=== PATIENT | female | born 1980 | race African-American/Black ===

== ENCOUNTER 2016-07-20 21:09 | Emergency (ER) | payer SELFPAY ==
[~2016-07-20] VITALS: Ht 181.6 cm; Wt 130.4 kg
[2016-07-20 21:09] VITALS: Ht 181.6 cm; Wt 130.4 kg
[~2016-07-20 21:09] MED LIST: IBUP-1547 PO
--- OUTSIDE RECORDS SUMMARY | 2016-07-20 21:16 | XMS REPORT | Continuity of Care Document ---
Author Author [facility] Organization [facility] Address Unknown Phone Unavailable Support Name Relationship Address Phone QUINTEN NYE DO Caregiver [facility] [address] [place] [address] PHYLLIS VARGAS Next Of Kin [address] [place] [address] Insurance Providers Payer Name Policy Number Subscriber Name Relationship Self Pay Erica Chin 17 Self Problems Medical Problems Problem Onset Date Status Left shoulder pain Unknown Active Medications Medication Dose Route Sig Days/Qty Instructions Order Date Discontinued Date Status [None] 01/08/08 Active Ibuprofen 1 Tab PO Every 8 Hours PRN PAIN 30 Qty 06/14/14 Active Social History Social History Problem Response Recorded Date/Time Hx Alcohol Use Y EVERY OTHER MONTH 06/14/2014 9:27pm Query Response Start Date Stop Date Smoking Status Current every day smoker Hospital Discharge Instructions No hospital discharge instructions. Plan of Care No plan of care. Functional Status Query Response Date Recorded Physical Hygiene Self June 14, 2014 9:27pm Disabilities None June 14, 2014 9:27pm Devices Used None June 14, 2014 9:27pm Dressing Self June 14, 2014 9:27pm Ambulation Self June 14, 2014 9:27pm Diet Self June 14, 2014 9:27pm Mental Status Alert Oriented June 14, 2014 9:27pm Disabilities None June 14, 2014 9:27pm Devices Used None June 14, 2014 9:27pm Physical Hygiene Self June 14, 2014 9:27pm Dressing Self June 14, 2014 9:27pm Ambulation Self June 14, 2014 9:27pm Diet Self June 14, 2014 9:27pm Allergies, Adverse Reactions, Alerts Allergen Type Severity Reaction Status Last Updated No Known Allergies Active 06/14/14 Immunizations Name Given Type Hx Tetanus, Diptheria, Pertussis SKIN INTACT Historical Hx Tetanus, Diptheria, Pertussis SKIN INTACT Historical Vital Signs Acute Vital Signs Vital Response Date/Time Temperature (Fahrenheit) 96.6 deg F (96.8 - 99.1) Temperature (Calculated Celsius) 35.60467 degrees C (36.0 - 37.3) Pulse Rate (adult) 89 bpm (60 - 100) Respiratory Rate 20 breaths/min (10 - 20) O2 Sat by Pulse Oximetry 100 % (90 - 100) Blood Pressure 149/98 mm Hg Height 5 ft 11 in Weight 281 lb Body Mass Index 39.0 kg/m^2 Results Test Source Date Result Interp. Ref. Range Comments Anion Gap August 27, 2007 2:34pm 8.6 MEQ/L N 5-15 BUN/Creatinine Ratio August 27, 2007 2:34pm 10 RATIO N 6-26 Basophils # (Auto) August 27, 2007 2:34pm 0.0 T/MM3 N 0-0.2 Basophils (%) (Auto) August 27, 2007 2:34pm 0.4 % N 0-2 Blood Urea Nitrogen August 27, 2007 2:34pm 7 MG/DL N 7-17 Calcium Level August 27, 2007 2:34pm 9.0 MG/DL N 8.4-10.2 Calculated Osmolality August 27, 2007 2:34pm 273 MOSM/KG N 273-286 Carbon Dioxide Level August 27, 2007 2:34pm 24 MEQ/L N 22-30 Chloride Level August 27, 2007 2:34pm 110 MEQ/L H 98-107 Creatinine August 27, 2007 2:34pm 0.7 MG/DL N 0.7-1.2 Eosinophils # (Auto) August 27, 2007 2:34pm 0.2 T/MM3 N 0-0.5 Eosinophils (%) (Auto) August 27, 2007 2:34pm 2.8 % N 0-4 Glucose Level August 27, 2007 2:34pm 85 MG/DL N 74-106 Hematocrit August 27, 2007 2:34pm 36.0 % N 36-46 Hemoglobin August 27, 2007 2:34pm 12.2 GM/DL N 12-16 Lymphocytes # (Auto) August 27, 2007 2:34pm 5.1 T/MM3 H 1-4.8 Lymphocytes (%) (Auto) August 27, 2007 2:34pm 61.8 % H 23-45 Mean Corpuscular Hemoglobin August 27, 2007 2:34pm 29.9 UUG N 26-34 Mean Corpuscular Hemoglobin Concent August 27, 2007 2:34pm 33.9 GM/DL N 31 -37 Mean Corpuscular Volume August 27, 2007 2:34pm 88.2 UM3 N 80-100 Mean Platelet Volume August 27, 2007 2:34pm 9.7 UM3 N 7.4-10.4 Monocytes # (Auto) August 27, 2007 2:34pm 0.5 T/MM3 N 0-0.8 Monocytes (%) (Auto) August 27, 2007 2:34pm 5.6 % N 0-9.0 Neutrophils # (Auto) August 27, 2007 2:34pm 2.4 T/MM3 N 1.8-7.7 Neutrophils (%) (Auto) August 27, 2007 2:34pm 29.4 % L 33-66 Platelet Count August 27, 2007 2:34pm 325 T/MM3 N 130-400 Potassium Level August 27, 2007 2:34pm 3.7 MEQ/L N 3.6-5 RDW Standard Deviation August 27, 2007 2:34pm 41.7 FL N 36.9-50.2 Red Blood Count August 27, 2007 2:34pm 4.08 M/MM3 N 4.00-5.20 Sodium Level August 27, 2007 2:34pm 143 MEQ/L N 134-144 Thyroid Stimulating Hormone (TSH) August 27, 2007 2:34pm 0.91 MIU/ML N 0.47-4.68 Urine Bacteria August 27, 2007 2:30pm Trace - Has specimen been collected/obtained? YWhat is the Source? [facility] Urine Bilirubin August 27, 2007 2:30pm Negative - Has specimen been collected/obtained? YWhat is the Source? [facility] Urine Blood August 27, 2007 2:30pm Trace - Has specimen been collected/ obtained? YWhat is the Source? [facility] Urine Collection Type August 27, 2007 2:30pm Straight cath - Has specimen been collected/obtained? YWhat is the Source? [facility] Urine Color August 27, 2007 2:30pm Yellow - Has specimen been collected /obtained? YWhat is the Source? [facility] Urine Glucose (UA) August 27, 2007 2:30pm Negative - Has specimen been collected/obtained? YWhat is the Source? [facility] Urine Ketones August 27, 2007 2:30pm Negative - Has specimen been collected/obtained? YWhat is the Source? [facility] Urine Leukocyte Esterase August 27, 2007 2:30pm Negative - Has specimen been collected/obtained? YWhat is the Source? [facility] Urine Nitrite August 27, 2007 2:30pm Negative - Has specimen been collected/obtained? YWhat is the Source? [facility] Urine Test August 27, 2007 2:30pm Negative - Has specimen been collected/obtained? YWhat is the Source? [facility] Urine Protein August 27, 2007 2:30pm Negative - Has specimen been collected/obtained? YWhat is the Source? [facility] Urine RBC August 27, 2007 2:30pm 1-3 /HPF - Has specimen been collected /obtained? YWhat is the Source? [facility] Urine Specific [place] August 27, 2007 2:30pm 1.010 - Has specimen been collected/obtained? YWhat is the Source? [facility] Urine Squamous Epithelial Cells August 27, 2007 2:30pm Few - Has specimen been collected/obtained? YWhat is the Source? [facility] Urine Turbidity August 27, 2007 2:30pm Clear - Has specimen been collected/obtained? YWhat is the Source? [facility] Urine Urobilinogen August 27, 2007 2:30pm Normal EU/DL - Has specimen been collected/obtained? YWhat is the Source? [facility] Urine WBC August 27, 2007 2:30pm 0-1 /HPF - Has specimen been collected /obtained? YWhat is the Source? [facility] Urine pH August 27, 2007 2:30pm 6.0 - Has specimen been collected/ obtained? YWhat is the Source? [facility] White Blood Count August 27, 2007 2:34pm 8.2 T/MM3 N 4.5-11.0 Procedures No known history of procedures. Encounters Encounter Location Date/Time Departed Emergency Room [facility] 06/14/14 8:54pm Recent Diagnosis
--- NOTE | 2016-07-20 21:37 | ERPDOC ---
Departure Disposition Decision Date: July 20, 2016 Disposition Decision Time: 22:34 Disposition: 01 DISCHARGED HOME, SELF-CARE Impression Impression Impression: Primary Impression: Dyspnea Dyspnea type: shortness of breath Qualified Codes: R06.02 - Shortness of breath Severity: Moderate Condition: Improved Seen By: Physician only Patient Instructions: Dyspnea (ED) Problems/Meds/Labs Reviewed?: Yes Medications reviewed and manag: Yes Additional Instructions: [facility] Follow up care ordered?: Yes Mental Status: Alert, Oriented HPI - General Medical General Stated Complaint: DIFFICULTY BREATHING Time Seen by Provider: 21:37 Source: patient Exam Limitations: no limitations HPI - General Medical Initial Comments Patient is a 36-year-old female presents emergent for evaluation of shortness of breath tingling in bilateral arms. Patient states she's been having symptoms off and on for several days, [facility] and started on propanolol. Patient redeveloped the symptoms after eating dinner tonight approximately 5:30 this lasted for 1 hour. EMS was called patient was found be hypertensive, patient was brought to the ER for evaluation. On arrival patient's symptoms have essentially resolved 1st blood pressure 151/67 Occurred At: home Onset: Rapid Duration: 1 hr Pain Scale: Now: 0/10 Allergies: Coded Allergies: No Known Allergies (Unverified , 06/14/14) Past History Past Medical History Pt denies signifigant PMH Hx Echocardiogram: No Psychological: drug abuse Surgical History Denies Surgeries Social History Smoking Status: Current every day smoker Substance Use Type: does not use Alcohol Intake: none Review of Systems Constitutional Constitutional: DENIES: appetite decrease, chills, dizziness, fever, weakness ENMT Sinuses: DENIES: congestion Cardiovascular Cardiac: dyspnea on exertion, DENIES: chest pain Pulmonary Respiratory: dyspnea, DENIES: cough, sputum GI Upper Abdomen: DENIES: nausea, pain, vomiting Musculoskeletal General: DENIES: cramps, pain, weakness Integumentary Skin: DENIES: color change, itching, rash Endocrine Endocrine: DENIES: heat/cold intolerance Hematologic/Lymphatic Hematologic/Lymphatic: DENIES: anemia Physical Exam General General Nourishment: well nourished, well developed General Body Habitus: well groomed Vitals and Pain First Documented Vital Signs Date Time Temp Pulse Resp B/P Pulse Ox O2 Delivery O2 Flow Rate FiO2 5/18/17 21:09 98.1 86 20 151/67 97 Room Air Weight: Kilograms: Height (feet): 5 Height (inches): 11.00 Triage Pain Scale: RN VS reviewed by Provider: Yes Eyes (brief) Eyes Brief: found: EOMI, PERRL ENMT (brief) ENMT Brief: FOUND: mucosa moist, normal dentition, NOT FOUND: nasal erythema, pharnyx erythema, tonsillar deviation Neck (brief) Neck: NOT FOUND: adenopathy, spasm, tenderness Respiratory (brief) Respiratory: FOUND: clear all [place], equal bilaterally, NOT FOUND: rales, wheezes Cardiovascular (brief) Cardiac: FOUND: regular rate, regular rhythm Capillary Refill: <2 sec Abdomen (brief) Abdominal Brief: FOUND: bowel normo active x4, soft, NOT FOUND: distended, tender Lymphatic (brief) Lymphatic Brief: NOT FOUND: adenopathy Musculoskeletal (brief) Musculoskeletal Brief: NOT FOUND: spasm, tenderness Integumentary (brief) Integumentary Brief: FOUND: dry, pink, warm, NOT FOUND: rash Neurologic (brief) Neurological Brief: FOUND: CN w/o gross def to obs, motor-no gross deficits, sensory-no gross deficits Psychiatric (brief) Psychiatric Brief: FOUND: alert, oriented Differential Diagnoses Considering: Hypo/Hyperglycemia, Hypo/Hyperkalemia, Hypo/Hypernatremia, Medication Effect, Pneumonia, Psychosis, Other (anxiety, atypical chest pain, acute IA, angina) Progress Results/Orders Orders Procedure Category Date Status Time Chest, Pa & Lateral RAD 07/20/16 Taken 21:43 EKG EKG 07/20/16 Taken 21:43 Cbc W/Auto LAB 07/20/16 Complete Diff-Reflex Manual 21:43 Bmp - Basic Metabolic LAB 07/20/16 Complete Panel 21:43 Troponin I W LAB 07/20/16 Complete Hemolysis Index 21:43 Lab Results Laboratory Tests Test 07/20/16 22:04 White Blood Count 8.5T/MM3 Red Blood Count 3.88M/MM3 Hemoglobin 11.7GM/DL Hematocrit 35.7% Mean Corpuscular Volume 92.0UM3 Mean Corpuscular Hemoglobin 30.2UUG Mean Corpuscular Hemoglobin Concent 32.8GM/DL RDW Standard Deviation 46.0FL Platelet Count 365T/MM3 Mean Platelet Volume 9.2UM3 Immature Granulocyte % (Auto) 0.1% Neutrophils (%) (Auto) 38.1% Lymphocytes (%) (Auto) 49.1% Monocytes (%) (Auto) 6.1% Eosinophils (%) (Auto) 5.2% Basophils (%) (Auto) 1.4% Absolute Immature Granulocyte (auto 0.01T/MM3 Absolute Neutrophils (auto) 3.2T/MM3 Absolute Lymphocytes (auto) 4.2T/MM3 Absolute Monocytes (auto) 0.5T/MM3 Absolute Eosinophils (auto) 0.4T/MM3 Absolute Basophils (auto) 0.1T/MM3 Turbidity < 20 Sodium Level 145MEQ/L Potassium Level 3.9MEQ/L Chloride Level 111MEQ/L Carbon Dioxide Level 25MEQ/L Anion Gap 9MEQ/L Blood Urea Nitrogen 13.0MG/DL Creatinine 0.8MG/DL Glomerular Filtration Rate Calc 81 BUN/Creatinine Ratio 16RATIO Glucose Level 95MG/DL Calculated Osmolality 279MOSM/KG Calcium Level 9.1MG/DL Icterus Index < 2 Troponin I < 0.012ng/ml Chemistry Specimen Hemolysis < 15 Progress Progress Patient's symptoms had resolved upon arrival, laboratories are noncontributory. We'll discharge patient back [facility], [facility] continue medications prescribed by [facility] EKG EKG : Rate: 60-100 Rhythm: sinus [place]: normal QRS: normal Intervals: normal ST/T: non-specific changes Interpreted by: signing physician Xray Xray : Xray: CXR PA/Lat Interpretation: Normal, Interpreted by Me (no acute cardiopulmonary findings ) LITZY JOY MD July 20, 2016 21:37
--- OUTSIDE RECORDS SUMMARY | 2016-07-20 21:45 | XMS REPORT | Continuity of Care Document ---
Author Author [facility] Organization [facility] Address Unknown Phone Unavailable Support Name Relationship Address Phone QUINTEN NYE DO Caregiver [facility] [address] [place] [address] PHYLLIS VARGAS Next Of Kin [address] [place] [address] Insurance Providers Payer Name Policy Number Subscriber [...] F (96.8 - 99.1) Temperature (Calculated Celsius) [phone] degrees C (36.0 - 37.3) Pulse Rate [...] is the Source? [facility] Urine Specific [place] August 27, 2007 2:30pm 1.010 - Has [...] Encounter Location Date/Time Departed Emergency Room [facility] 06/14/14 8:54pm Recent Diagnosis
[2016-07-20 22:08] LABS: BASOPHILS # (AUTO) 0.1 T/MM3 (0-0.2); BASOPHILS % (AUTO) 1.4 % (0-2); EOSINOPHILS # (AUTO) 0.4 T/MM3 (0-0.5); EOSINOPHILS % (AUTO) 5.2 % (0-4); HCT - HEMATOCRIT 35.7 % (36-46); HGB - HEMOGLOBIN 11.7 GM/DL (12-16); IMMATURE GRANULOCYTE # (AUTO) 0.01 T/MM3 (0.00-0.03); IMMATURE GRANULOCYTE % (AUTO) 0.1 % (0.0-0.5); LYMPHOCYTES # (AUTO) 4.2 T/MM3 (1-4.8); LYMPHOCYTES % (AUTO) 49.1 % (23-45); MEAN CORPUSCULAR HGB 30.2 UUG (26-34); MEAN CORPUSCULAR HGB CONC(MCHC 32.8 GM/DL (31-37); MEAN PLATELET VOLUME 9.2 UM3 (9.4-12.4); MONOCYTES # (AUTO) 0.5 T/MM3 (0-0.8); MONOCYTES % (AUTO) 6.1 % (0-9.0); NEUTROPHILS #(AUTO)-ABSOLUTE 3.2 T/MM3 (1.8-7.7); NEUTROPHILS % (AUTO) 38.1 % (33-66); RED BLOOD COUNT 3.88 M/MM3 (4.00-5.20); WBC - WHITE BLOOD COUNT 8.5 T/MM3 (4.5-11.0)
--- NOTE | 2016-07-20 22:15 | NUR ---
RETURN FROM XRAY
[2016-07-20 22:16] LABS: ANION GAP 9 MEQ/L (5-15); BUN/CREATININE RATIO 16 RATIO (6-26); CALCIUM 9.1 MG/DL (8.4-10.2); CHLORIDE 111 MEQ/L (98-107); CO2 - CARBON DIOXIDE 25 MEQ/L (22-30); CREATININE 0.8 MG/DL (0.7-1.2); GLOMERULAR FILTRATION RATE 81; GLUCOSE 95 MG/DL (65-110); POTASSIUM 3.9 MEQ/L (3.6-5); SODIUM 145 MEQ/L (134-144)
[2016-07-20] MEDS ORDERED: PROP20TA7 PO (22:23)
[2016-07-20 22:35] VITALS: BP 128/72; PULSE 86; RESP 18; TEMP 98.2; O2SAT 100
--- NOTE | 2016-07-20 22:40 | NUR ---
[facility] CALL[facility] FOR XPORT UPON DISCHARGE.
--- NOTE | 2016-07-21 09:29 | DI ---
INDICATION: ITS.REASON: shortness of breath PROCEDURE: CHEST 2-VIEWS UPRIGHT (PA \T\ LAT) Encounter: Initial COMPARISON: None FINDINGS: The lungs are clear without evidence of focal abnormal airspace opacity. There is no pleural effusion or pneumothorax. The heart size, mediastinal contours and pulmonary vascularity are within normal limits. There is no significant skeletal abnormality. IMPRESSION: No acute cardiopulmonary disease. .
== END 2016-07-20 22:40 | disposition home or self-care (01) ==
LOC: ED 21:09
DX: R06.02 Shortness of breath (principal); R20.2 Paresthesia of skin
CPT/HCPCS: 36415; 80048; 84484; 85025; 93005